=== PATIENT | female | born 1945 | race Caucasian/White ===

== ENCOUNTER 2017-10-24 11:22 | Inpatient (IN) | payer OTHER, MEDICAID ==
[~2017-10-24] VITALS: Ht 167.6 cm; Wt 76.2 kg
[~2017-10-24 11:22] MED LIST: ALEVE220 MG PO; BACTRIM DS TAB1 EACH PO; BENTYL 20 MG TA20 M1 PO; CARAFATE 1 GM TA1 GM PO; CIPRO500 MG PO; CRESTOR PO; CRESTOR10 MG PO; Crestor PO; DESYREL PO; DOXEPIN 25 MG C25 M1 GT; DOXYCYCLINE 10100 MG PO; DULOXETINE HCL60 MG PO; Glucophage PO; HYDROCODON-ACE1 EAC7 PO; HYDROCODONE-AP1 EAC6 PO; IBUPROFEN 600600 M1 PO; LYRICA 75 MG CA75 MG PO; METFORMIN HCL500 MG PO; METFORMIN PO; MILK OF MA400 MG/5 M PO; NORCO 5-325 TA1 EACH PO; PANTOPRAZOLE SO40 MG PO; PEPCID20 MG PO; SEE COMMENTS; TRAMADOL 50 MG50 MG PO; TRAVATAN Z5 ML OP; TRAZODONE HCL50 MG PO; TYLENOL325 MG PO; Trazodone Hcl PO; UNICOMPLEX M TA1 TA1 PO; VALIUM5 MG PO; ZOFRAN4 MG PO; [UNRECOGNIZED DRUG - MIXTURE] PO; [UNRECOGNIZED DRUG - REMARK]
[2017-10-24 11:27] VITALS: BP 150/57
[2017-10-24 11:55] LABS: ABSOLUTE LYMPHOCYTES 0.5 thou/uL (0.8-5.3); ABSOLUTE MONOCYTES 0.3 thou/uL (0.0-1.2); BASOPHILS 0.5 %; HEMATOCRIT 33.5 % (37.0-47.0); HEMOGLOBIN 10.7 gm/dL (12.0-15.0); LYMPHOCYTES 11.1 %; MCH 24.2 pg (26.0-34.0); MCHC 32.1 g/dL (28.0-37.0); MCV 75.4 fL (80.0-100.0); MONOCYTES 6.1 %; MPV 8.5 fl. (7.2-11.1); NUCLEATED RBCS 0 /100WBC; PLATELET COUNT* 160 thou/uL (150-400); POLYS 82.3 %; RBC 4.44 mil/uL (4.20-5.00); RDW-CV 17.5 % (10.5-14.5); WBC 4.9 thou/uL (4.0-11.0)
[2017-10-24 12:12] LABS: INR 1.2; PROTIME 11.3 Seconds (9.20-11.50)
[2017-10-24 12:14] LABS: URINE BILIRUBIN NEGATIVE (Negative); URINE BLOOD NEGATIVE (Negative); URINE CLARITY CLEAR; URINE COLOR YELLOW; URINE GLUCOSE-RANDOM NEGATIVE (Negative); URINE KETONES 1+ (Negative); URINE LEUKOCYTES-REFLEX NEGATIVE (Negative); URINE NITRITE-REFLEX NEGATIVE (Negative); URINE PROTEIN TRACE (Negative); URINE SPECIFIC GRAVITY 1.025 (1.005-1.030); URINE UROBILINOGEN 0.2 E.U./dl (0.2-1.0)
[2017-10-24 12:28] LABS: ANION GAP 10 mmol/L (7-16); BUN 15 mg/dL (7-18); CALCIUM 8.8 mg/dL (8.5-10.1); CHLORIDE 98 mmol/L (98-107); CO2 29 mmol/L (21-32); CREATININE 1.1 mg/dL (0.6-1.3); GLUCOSE 207 mg/dL (70-99); POTASSIUM 3.7 mmol/L (3.5-5.1); SODIUM 137 mmol/L (136-145)
[2017-10-24 12:33] LABS: ALBUMIN 3.5 g/dL (3.4-5.0); ALKALINE PHOSPHATASE 60 U/L (46-116); SGOT 28 U/L (15-37); SGPT 21 U/L (30-65); TOTAL BILIRUBIN 0.4 mg/dL (<0.1-1.0); TROPONIN-I LEVEL <0.06 ng/mL (<0.06)
[2017-10-24 12:36] LABS: INFLUENZA A ANTIGEN None Detected (None Detect); INFLUENZA B ANTIGEN None Detected (None Detect)
[2017-10-24] MEDS ORDERED: LYRICA 50 MG50 MG PO (13:53)
[2017-10-24] MEDS ORDERED: LORATIDINE 10 M10 M1 PO (13:55)
[2017-10-24] MEDS ORDERED: SENEXON-S TABL1 EACH PO (13:56)
[2017-10-24] MEDS ORDERED: TRAVATAN Z2.5 ML OPHTHALMIC (13:56)
[2017-10-24] MEDS ORDERED: VENTOLIN HFA 1818 GM INH (13:57)
[2017-10-24 17:14] VITALS: BP 111/54
[2017-10-24 20:00] VITALS: BP 137/49
[2017-10-25 00:33] VITALS: BP 131/58
[2017-10-25 04:00] VITALS: BP 123/53
[2017-10-25 07:55] VITALS: BP 144/62
[2017-10-25 11:30] VITALS: BP 141/65
--- NOTE | 2017-10-25 11:48 | EKG ---
[place] [address] ELECTROCARDIOGRAM REPORT Name: CONSTANTINOTOÑA L Room: [address] ADM IN M.R.#: [id number] Admission: 10/24/17 Attend Phys: Shiva Lopez, Discharge: Date of : 41 Report #: [id number] THIS REPORT FOR: //name// [facility] ED Test Date: 2017-10-24 Test Time: 12:01:50 Pat Name: TOÑA MEEKS Department: Room: [facility] Gender: F Auto Parts Handler: Lizbet BAKER : 1945 Requested By: Cr Meredith Order Number: [id number] MD: Александр Baer Measurements Intervals [place] Rate: 81 P: 53 W[place]: 165 QRS: -38 QRSD: 102 T: 71 QT: 362 QTc: 421 Interpretive Statements Sinus rhythm Left axis deviation Nonspecific T abnormalities, lateral leads Compared to ECG 07/14/2017 07:32:12 Left-axis deviation now present T-wave abnormality now present Electronically Signed On 10-25-2017 11:48:38 IT INFRASTRUCTURE SPECIALIST by Александр Baer [email or web address] <ELECTRONICALLY SIGNED> By: Александр Baer MD, FAC 10/25/17 1148 1201 1201 Александр Baer MD, [facility] /EPI
[2017-10-25 15:20] VITALS: BP 114/63
[2017-10-25 20:00] VITALS: BP 155/62
[2017-10-26] VITALS: BP 161/54
[2017-10-26 05:51] LABS: HEMATOCRIT 29.9 % (37.0-47.0); HEMOGLOBIN 9.8 gm/dL (12.0-15.0); MCH 24.2 pg (26.0-34.0); MCHC 32.7 g/dL (28.0-37.0); MCV 74.1 fL (80.0-100.0); MPV 9.1 fl. (7.2-11.1); RBC 4.04 mil/uL (4.20-5.00); RDW-CV 16.7 % (10.5-14.5); WBC 3.5 thou/uL (4.0-11.0)
[2017-10-26 06:04] LABS: CALCIUM 8.5 mg/dL (8.5-10.1); CREATININE 0.8 mg/dL (0.6-1.3); MAGNESIUM 1.5 mg/dL (1.8-2.4)
[2017-10-26 06:08] LABS: POTASSIUM 2.9 mmol/L (3.5-5.1)
[2017-10-26 06:39] LABS: ABSOLUTE LYMPHOCYTES 0.7 thou/uL (0.8-5.3); ABSOLUTE MONOCYTES 0.4 thou/uL (0.0-1.2); ABSOLUTE NEUTROPHILS 2.5 thou/uL (1.6-8.1); BASOPHILS 1.1 %; EOSINOPHILS 1.4 %; HEMATOCRIT 30.7 % (37.0-47.0); LYMPHOCYTES 18.8 %; MCH 24.5 pg (26.0-34.0); MCHC 32.4 g/dL (28.0-37.0); MCV 75.5 fL (80.0-100.0); MONOCYTES 10.8 %; MPV 8.8 fl. (7.2-11.1); NUCLEATED RBCS 0 /100WBC; PLATELET COUNT* 122 thou/uL (150-400); POLYS 67.9 %; RBC 4.06 mil/uL (4.20-5.00); RDW-CV 17.1 % (10.5-14.5); WBC 3.7 thou/uL (4.0-11.0)
[2017-10-26 06:51] LABS: CALCIUM 8.4 mg/dL (8.5-10.1); CREATININE 0.8 mg/dL (0.6-1.3)
[2017-10-26 08:00] VITALS: BP 138/71
[2017-10-26 20:30] VITALS: BP 143/58
[2017-10-27 00:05] VITALS: BP 144/56
[2017-10-27 03:52] VITALS: BP 154/63
[2017-10-27 04:00] VITALS: BP 144/56; BP 154/63
[2017-10-27 07:40] VITALS: BP 141/66
[2017-10-27 07:48] LABS: HEMATOCRIT 31.3 % (37.0-47.0); MCV 74.8 fL (80.0-100.0); MPV 8.5 fl. (7.2-11.1); RBC 4.18 mil/uL (4.20-5.00); RDW-CV 16.8 % (10.5-14.5); WBC 3.4 thou/uL (4.0-11.0)
[2017-10-27 08:08] LABS: ALBUMIN 3.2 g/dL (3.4-5.0); CALCIUM 8.1 mg/dL (8.5-10.1); CREATININE 0.8 mg/dL (0.6-1.3); MAGNESIUM 2.2 mg/dL (1.8-2.4); POTASSIUM 3.1 mmol/L (3.5-5.1); TOTAL BILIRUBIN 0.3 mg/dL (<0.1-1.0); TOTAL PROTEIN 6.7 g/dL (6.4-8.2)
[2017-10-27 15:16] VITALS: BP 153/63
[2017-10-27 19:50] VITALS: BP 177/59
[2017-10-28] VITALS: BP 128/65
[2017-10-28 07:35] VITALS: BP 156/72
[2017-10-28 08:28] LABS: HEMATOCRIT 31.2 % (37.0-47.0); HEMOGLOBIN 10.1 gm/dL (12.0-15.0); MCHC 32.2 g/dL (28.0-37.0); MCV 74.5 fL (80.0-100.0); MPV 8.1 fl. (7.2-11.1); RBC 4.2 mil/uL (4.20-5.00); WBC 4.9 thou/uL (4.0-11.0)
[2017-10-28 08:44] LABS: ALBUMIN 3.1 g/dL (3.4-5.0); CALCIUM 8.7 mg/dL (8.5-10.1); CREATININE 0.9 mg/dL (0.6-1.3); MAGNESIUM 1.8 mg/dL (1.8-2.4); PHOSPHORUS* 3.6 mg/dL (2.5-4.9); POTASSIUM 3.4 mmol/L (3.5-5.1)
[2017-10-28 11:18] VITALS: BP 156/72
[2017-10-28 11:54] VITALS: BP 122/50
--- NOTE | 2017-10-30 10:39 | EEG ---
[address] [address] EEG STUDY REPORT Name: TOÑA MEEKS Room: [address]#: [id number] Admission: 10/24/17 Attend Phys: Shiva Lopez, Discharge: 10/28/17 Date of : 41 Report #: [id number] THIS REPORT FOR: //name// CC: MICHEAL physician/PCP Shiva Lopez DATE OF SERVICE: 10/26/2017 FINDINGS: This patient is being evaluated for altered mental status. EEG was done by placing the electrodes by standard 10-20 system of electrode placement. Both referential and sequential montages were used for recording. Background activity in this patient's EEG is about 4-5 Hz and 30 microvolts. It is a symmetrical activity. The patient went to sleep that is associated with bilaterally symmetrical sleep spindle and vertex sharp waves. Photic stimulation is unremarkable. Throughout the record, no active epileptiform activity was noted. IMPRESSION: This is an abnormal EEG because it is poorly formed and disorganized. There is a nonspecific abnormality, which can occur with encephalopathy, dementia, effect of psychotropic medication, etc. Clinical correlation is recommended. Thank you very much for this referral. <ELECTRONICALLY SIGNED> By: Saul Woodson MD 10/30/17 1039 1649 1738Saul Woodson MD /nt
--- NOTE | 2017-10-30 10:39 | CON ---
[address] [address] CONSULTATION Name: CONSTANTINOTOÑA [place] Room: [address] IN .R.#: [id number] Admission: 10/24/17 Attend Phys: Shiva Lopez, Discharge: 10/28/17 Date of : 41 Report #: [id number] THIS REPORT FOR: //name// CC: MICHEAL physician/PCP Shiva Lopez DATE OF SERVICE: 10/26/2017 HISTORY OF PRESENT ILLNESS: This is a 72-year-old female patient who is not able to provide any reliable history. I talked to the nurses looking after this patient and subsequently I talked to the patient's daughter. This patient has underlying dementia. She was in assisted living till about 1 year ago, but then they put her in a fpc. She has significant memory problems. She usually does not remember month or the year. She repeats the same thing again and again. This had started some time ago spontaneously and up till about 1 year ago she was able to live in assisted living, but then they had to put her in the fpc after that. Whenever she develops bladder infections, she becomes even more confused and then partly recovers from that. She had a history of fall, but no history of seizure associated with it. REVIEW OF SYSTEMS: Indicate she has a history of breast cancer and stomach stapling, cataract improved. She has a history of bipolar. I carried out the 14-point review of systems and this was her relevant 14-point review of systems. PAST MEDICAL HISTORY: Positive for what appeared to be significant dementia. FAMILY HISTORY: Negative for congenital dementia. SOCIAL HISTORY: The patient lives in a fpc. PHYSICAL EXAMINATION: Indicate that she is alert, she is responsive. She has virtually no memory. Speech is limited, but I do not know what her baseline is. I tried to do the cranial nerve examination 2-12, but she was not able to cooperate very well. It looks like she can move all four extremities. She has no meningeal sign. She did not understand the instruction to do the cerebellar sign and she did not allow the fundus examination. She is a moderately built individual who does not have any dysmorphic features of eyes, ears and face. I think her vision and hearing looks adequate. Her blood pressure is 138/71, respirations 16, pulse is 90, temperature is 98.7. There is no edema, cyanosis or jaundice. Cardiac examination does not show any atrial fibrillation. Respiratory examination does not show much respiratory difficulty. LABORATORY DATA: Her last potassium is 3. Hemoglobin was 3.7. She did have a CT scan of the head, which showed atrophy. She did have a TSH and vitamin B12[place] [address] CONSULTATION Name: TOÑA MEEKS Room: [address]#: [id number] Admission: 10/24/17 Attend Phys: Shiva Lopez, Discharge: 10/28/17 Date of : 41 Report #: [id number] IMPRESSION: 1. Significant amount of dementia by history. 2. Viral illness causing encephalopathy. 3. Central nervous system infection is unlikely, but cannot be excluded. RECOMMENDATION: I initially talked to the patient, but I do not think the patient understands things. Then, I called the patient's daughter and discussed the situation with them. I discussed with them that they need to decide how aggressive they want to be. If they want to be aggressive, then she would need a spinal tap. If they want conservative care, then we can try conservative care and see how she does. I do not think she will be able to cooperate with MRI, but if they want to be aggressive, then we can try an MRI tomorrow. I did talk to them about LP and it is up to them if they want to do the LP to make sure there is no central nervous system. They will let us know if they want to be aggressive. We will get an EEG done and discuss this patient with you. Thank you very much for this referral and if you have any question, please feel free to contact me. <ELECTRONICALLY SIGNED> By: Saul Woodson MD 10/30/17 1039 1409 1448Saul Woodson MD /nt
== END 2017-10-28 11:50 | DRG 865 ==
LOC: M.ERS 11:22 → M.TBA-ER 12:49 → M.3W 12:49
PROVIDERS: Family Medicine; Internal Medicine; ADMIT Family Medicine
PROC: 4A00X4Z Measurement of Central Nervous Electrical Activity, External Approach (ICD-10-PCS; principal; 2017-10-24)
DX: B34.9 Viral infection, unspecified (principal); G93.40 Encephalopathy, unspecified; R65.10 Systemic inflammatory response syndrome (SIRS) of non-infectious origin without acute organ dysfunction; F03.90 Unspecified dementia, unspecified severity, without behavioral disturbance, psychotic disturbance, mood disturbance, and anxiety; Z85.3 Personal history of malignant neoplasm of breast; F31.9 Bipolar disorder, unspecified; K21.9 Gastro-esophageal reflux disease without esophagitis; Z98.42 Cataract extraction status, left eye; Z98.41 Cataract extraction status, right eye

== ENCOUNTER → 2018-07-16 | Outpatient (CLI) | payer OTHER, MEDICAID ==
[~2018-07-16] MED LIST changes: +LORATIDINE 10 M10 M1 PO; +LYRICA 50 MG50 MG PO; +SENEXON-S TABL1 EACH PO; +TRAVATAN Z2.5 ML OPHTHALMIC; +VENTOLIN HFA 1818 GM INH
[2018-07-16 09:58] LABS: CREATININE 1.2 mg/dL (0.6-1.3)
== END ==
LOC: M.LAB 09:21 → M.CT 11:00
PROVIDERS: Internal Medicine
DX: R91.1 Solitary pulmonary nodule (principal); C50.111 Malignant neoplasm of central portion of right female breast

== ENCOUNTER 2020-04-13 13:02 | Observation (INO) | payer MEDICARE, MEDICAID ==
[~2020-04-13] VITALS: Ht 167.6 cm; Wt 75.7 kg
[2020-04-13 08:00] VITALS: BP 145/65
[~2020-04-13 13:02] MED LIST changes: -HYDROCODONE-AP1 EAC6 PO; +NORCO 5-325 TA1 EAC2 PO
[2020-04-13 13:10] VITALS: BP 115/58
[2020-04-13] MEDS ORDERED: AUGMENTIN 500-1 EACH PO (13:20)
[2020-04-13] MEDS ORDERED: CLARITIN10 MG PO (13:21)
[2020-04-13] MEDS ORDERED: ANTI-ITCH28 GM TOP (13:22)
[2020-04-13] MEDS ORDERED: LEVEMIR100 UNIT/2 SUBQ (13:23)
[2020-04-13] MEDS ORDERED: MIRALAX119 GM PO (13:24)
[2020-04-13] MEDS ORDERED: XANAX 0.5 MG0.5 MG PO (13:24)
[2020-04-13 13:40] LABS: ABSOLUTE BASOPHILS 0.1 thou/uL (0.0-0.2); ABSOLUTE EOSINOPHILS 0.1 thou/uL (0.0-0.7); ABSOLUTE MONOCYTES 0.6 thou/uL (0.0-1.2); ABSOLUTE NEUTROPHILS 5.7 thou/uL (1.6-8.1); BASOPHILS 0.9 %; EOSINOPHILS 1.4 %; HEMATOCRIT 38.3 % (37.0-47.0); HEMOGLOBIN 13.1 gm/dL (12.0-15.0); LYMPHOCYTES 23.7 %; MCH 30.9 pg (26.0-34.0); MCHC 34.3 g/dL (28.0-37.0); MCV 89.9 fL (80.0-100.0); MONOCYTES 6.5 %; MPV 8.2 fl. (7.2-11.1); NUCLEATED RBCS 0 /100WBC; PLATELET COUNT* 172 thou/uL (150-400); POLYS 67.5 %; RBC 4.26 mil/uL (4.20-5.00); RDW-CV 14.6 % (10.5-14.5); WBC 8.5 thou/uL (4.0-11.0)
[2020-04-13 13:49] LABS: CALCIUM 8.3 mg/dL (8.5-10.1); CREATININE 1.5 mg/dL (0.6-1.3)
[2020-04-13 13:51] LABS: APTT 24.6 Seconds (25.0-31.3); INR 1.1; PROTIME 11.5 Seconds (9.20-11.50)
[2020-04-13 14:00] LABS: ALBUMIN 3.3 g/dL (3.4-5.0); MAGNESIUM 2.1 mg/dL (1.8-2.4); TOTAL BILIRUBIN 0.3 mg/dL (<0.1-1.0)
--- NOTE | 2020-04-13 15:18 | EKG ---
[place] [address] ELECTROCARDIOGRAM REPORT Name: TOÑA MEEKS Room: [address]#: [id number] Admission: 04/13/20 Attend Phys: Jc Chen Discharge: Date of : 41 Date of Service: 04/13/20 1306 Report #: [id number] THIS REPORT FOR: //name// [facility] ED Test Date: 2020-04-13 Test Time: 13:06:45 Pat Name: TOÑA MEEKS Department: Room: [facility] Gender: F Loss Prevention Investigator: : 1945 Requested By: Joselo Romero Order Number: [id number] MD: Miguelangel Riojas Measurements Intervals [place] Rate: 70 P: 102 [place]: 57 QRS: -47 QRSD: 104 T: 87 QT: 403 QTc: 435 Interpretive Statements Sinus rhythm Short MS interval Left anterior fascicular block Abnormal R-wave progression, late transition LVH with secondary repolarization abnormality Compared to ECG 10/24/2017 12:01:50 Short MS interval now present Left anterior fascicular block now present Left ventricular hypertrophy now present Early repolarization now present Electronically Signed On 04-13-2020 15:18:12 CDT by Miguelangel Riojas [email or web address] <ELECTRONICALLY SIGNED> By: Miguelangel Riojas MD, [facility] 04/13/20 1518 1306 1306 Miguelangel Riojas MD, [facility] /EPI
[2020-04-13 16:37] VITALS: BP 111/52
[2020-04-13 17:00] VITALS: BP 145/65
[2020-04-13 20:00] VITALS: BP 138/60
[2020-04-14 01:00] VITALS: BP 138/56
[2020-04-14 04:00] VITALS: BP 127/43
[2020-04-14 08:00] VITALS: BP 124/46
[2020-04-14 12:32] VITALS: BP 118/47; BP 130/71
[2020-04-14 16:41] VITALS: BP 112/45
[2020-04-14 20:00] VITALS: BP 153/57
[2020-04-15] VITALS: BP 117/60
[2020-04-15 04:00] VITALS: BP 147/63
[2020-04-15 08:00] VITALS: BP 120/45
[2020-04-15 16:00] VITALS: BP 111/45
[2020-04-15 20:00] VITALS: BP 139/51
[2020-04-16] VITALS: BP 114/40
[2020-04-16 04:00] VITALS: BP 111/59
[2020-04-16 04:05] LABS: GLYCOHEMOGLOBIN (HGB A1C) 7.1 % (4.8-5.6)
[2020-04-16 08:00] VITALS: BP 140/62
[2020-04-16] MEDS ORDERED: ASA81BEC PO (09:29)
[2020-04-16 10:24] LABS: CHOLESTEROL 118 mg/dL (<200); HDL CHOLESTEROL 39 mg/dL (>40); LDL CHOLESTEROL 59 mg/dL (<100); TRIGLYCERIDE 100 mg/dL (<150); VLDL 20 mg/dL (<40)
[2020-04-16 10:25] LABS: SERUM ASSESSMENT Clear
[2020-04-16 11:24] VITALS: BP 140/62
[2020-04-16 12:00] VITALS: BP 136/62
--- NOTE | 2020-04-16 12:24 | CON ---
[address] [address] CONSULTATION Name: TOÑA MEEKS Room: [address] Elroy Trujillo#: [id number] Admission: 04/13/20 Attend Phys: Marilee Acosta Discharge: Date of : 41 Report #: [id number] THIS REPORT FOR: //name// cc: MICHEAL Peres family physician/PCP MICHEAL Peres family physician/PCP ~ THIS REPORT FOR: //name// CC: MICHEAL physician/PCP Jc Chen DATE OF SERVICE: 04/14/2020 CARDIOLOGY CONSULTATION HISTORY OF PRESENT ILLNESS: The patient is a pleasant 74-year-old female with dementia. She presented yesterday with chest pain, which apparently remitted after nitrates and aspirin. She does not recall the episode and thus it is difficult to ascertain in characteristics regarding it. She notes that the pain is not present today. On reviewing the admission notes, there was the suggestion that it was nitrate responsive. There is no history of antecedent myocardial infarction. She does have a chronic chest discomfort, which was related to about to breast resections. PAST MEDICAL HISTORY: Remarkable for significant dementia, prior mastectomies, gastroesophageal reflux disease. SOCIAL HISTORY: The patient is not a smoker. REVIEW OF SYSTEMS: Remarkable for the aforementioned breast reduction surgery and then dementia. PHYSICAL EXAMINATION: GENERAL: Reveals a pleasant elderly female, in no acute distress. VITAL SIGNS: Blood pressure is 124/50, pulse rate is 55, and respirations are 18 per minute. NECK: Jugular venous pressure is normal. CHEST: Clear. CARDIAC: Reveals normal first and second heart sounds with a soft systolic murmur. ABDOMEN: Mildly obese. EXTREMITIES: Without significant edema. LABORATORY DATA: Reveals hemoglobin of 13.1; white blood cell count of [address] [place] [address] CONSULTATION Name: TOÑA MEEKS Room: [address] Elroy Trujillo#: [id number] Admission: 04/13/20 Attend Phys: Marilee Acosta Discharge: Date of : 41 Report #: [id number] with 172,000 platelets. Sodium 141, potassium 4.8, BUN 19, creatinine 1.5. Troponin-I is less than 0.06. NT-BNP is 358. Chest x-ray reveals a normal heart size without evidence for congestive heart failure. IMPRESSION: 1. Episode of chest discomfort yesterday of uncertain etiology; there is a question of nitrate responsiveness. 2. EKG and enzymes revealed no evidence for acute myocardial ischemia or injury. 3. History of breast cancer. 4. Diabetes. 5. Fibromyalgia. RECOMMENDATIONS: One could consider outpatient noninvasive testing, but I would not recommend catheterization or invasive evaluation on the basis of confluent data at this point. <ELECTRONICALLY SIGNED> By: Miguelangel Riojas MD, [facility] 04/16/20 1224 1039 [id number] Riojas MD, FACC /nt
[2020-04-16 16:00] VITALS: BP 126/45
--- NOTE | 2020-04-16 17:02 | CARDNUC ---
[place] [address] CARDIAC NUCLEAR IMAGING REPORT Name: TOÑA MEEKS Room: [address]R.#: [id number] Admission: 04/13/20 Attend Phys: Jc Chen Discharge: Date of : 41 Date of Service: 04/16/20 1701 Report #: [id number] THIS REPORT FOR: cc: FAM - No family physician/PCP FAM - No family physician/PCP Jayson Pineda MD [facility] ~ ADDENDUM APPROVED REPORT Imaging Protocol: Stress Tc-99m/Rest Tc-99m 2 days Study performed: 04/15/2020 09:39:00 Indication: Chest pain and palpitations Patient Location: In-Patient Stress Tech: [place] Stress Nurse: Rosemarie Montoya RN NM Tech:ALEXIS Rodrigues Ht: 5 ft 5 in Wt: 167 lbs BSA: 1.83 m2 HR: 60 bpm BP: 117/67 mmHg BMI: 27.78 Medical History Medical History: Type 2 diabetes mellitus Medications: Aspirin, nitroglycerin, metformin, insulin Allergies: No known drug allergies Cardiac Risk Factors: Age greater than 55, type 2 diabetes mellitus Previous Cardiac Procedures: None Pretest Chest Pain Characteristics: chest pain, dyspnea and palpitations Meds Held (24 hrs): Nitroglycerin Resting Data Rest SPECT myocardial perfusion imaging was performed in supine position 30 minutes following the intravenous injection of 11.4 mCi of Tc-99m Sestamibi. Time of rest injection: 13:00 Date: 04/16/2020 The images were gated to evaluate regional wall motion and calculate left ventricular ejection fraction. Administration Route: IV Administration Site: Right Arm Pharmacologic Stress Pharmacologic stress test was performed by injecting Regadenoson 0.4 mg IV push over 10-15 seconds immediately [place] [address] CARDIAC NUCLEAR IMAGING REPORT Name: TOÑA MEEKS Room: [address]#: [id number] Admission: 04/13/20 Attend Phys: Jc Chen Discharge: Date of : 41 Date of Service: 04/16/20 1701 Report #: [id number] injection of 32.7 mCi of Tc-99m Sestamibi. Time of stress injection: 14:35 Date: 04/16/2020 Administration Route: IV Administration Site: Right Arm Heart Rate at time of stress injection: 81 bpm. Gated Stress SPECT was performed 40 minutes after stress injection. The images were gated to evaluate regional wall motion and calculate left ventricular ejection fraction. Stress Test Details Stress Test: Pharmacologic stress testing performed using 0.4 mg of regadenoson per 5 mL given IV over 10 seconds. Reason for pharmacologic stress test: physical limitation. HR Max Heart Rate (APMHR): 144 bpm Resting HR: 60 bpm Target HR (85% APMHR): 122 bpm Max HR Achieved: 81 bpm % of APMHR: 56 Recovery HR: 68 bpm BP Resting BP: 117/67 mmHg Max BP: 122/52 mmHg Recovery BP: 138/58 mmHg ECG Resting ECG: Sinus Rhythm Stress ECG: Sinus Rhythm ST Change: None Arrhythmia: None Recovery ECG: Sinus Rhythm Recovery ST Change: None Recovery Arrhythmia: None Clinical The patient tolerated Lexiscan infusion without significant cardiac symptoms. Stress ECG Conclusion Baseline twelve-lead EKG shows sinus rhythm without significant ST segment or T wave abnormality. EKGs obtained during and post Lexiscan infusion show sinus rhythm with no significant ST segment or T wave changes when compared to baseline. Study Quality Study: [place] [address] CARDIAC NUCLEAR IMAGING REPORT Name: TOÑA MEEKS Room: [address]#: [id number] Admission: 04/13/20 Attend Phys: Jc Chen Discharge: Date of : 41 Date of Service: 04/16/20 1701 Report #: [id number] Artifact: No artifact Study Data At rest, the left ventricular ejection fraction was 59%.. Post stress, the left ventricular ejection was 78%.. TID = 0.77. Perfusion Perfusion images show uniform uptake of radioisotope throughout the myocardium at rest and post Lexiscan stress. Wall Motion Normal left ventricular wall motion. Nuclear Conclusion ECG Findings: negative for ischemia Clinical Findings: negative for ischemia Nuclear Findings: negative for ischemia Exercise Capacity: not assessed Left Ventricular Function: normal Risk Study: low Perfusion images show no defect to suggest infarct or ischemia. Left ventricular systolic function is normal on gated studies. This is a low risk study. <Conclusion> Baseline twelve-lead EKG shows sinus rhythm without significant ST segment or T wave abnormality. EKGs obtained during and post Lexiscan infusion show sinus rhythm with no significant ST segment or T wave changes when compared to baseline. <ELECTRONICALLY SIGNED> By: Jayson Pineda MD, FACC 04/16/201700 00 00 Jayson Pineda MD, FACC /INF
== END 2020-04-16 18:30 ==
LOC: M.ERS 13:02 → M.2W 14:40 → M.TBA-ER 14:40 → M.2W 16:33
PROVIDERS: Emergency Medicine Emergency Medical Services; Internal Medicine; ADMIT Internal Medicine; ATTEND Internal Medicine
DX: R07.89 Other chest pain (principal); M54.5 Low back pain; K21.9 Gastro-esophageal reflux disease without esophagitis; F03.90 Unspecified dementia, unspecified severity, without behavioral disturbance, psychotic disturbance, mood disturbance, and anxiety; E11.9 Type 2 diabetes mellitus without complications; F31.9 Bipolar disorder, unspecified; N17.9 Acute kidney failure, unspecified; R06.02 Shortness of breath

== ENCOUNTER 2021-01-14 21:22 | Emergency (ER) | payer MEDICARE, MEDICAID ==
[~2021-01-14] VITALS: Ht 160 cm; Wt 81.2 kg
[~2021-01-14 21:22] MED LIST changes: +ANTI-ITCH28 GM TOP; +ASA81BEC PO; +AUGMENTIN 500-1 EACH PO; +CLARITIN10 MG PO; +LEVEMIR100 UNIT/2 SUBQ; +MIRALAX119 GM PO; +XANAX 0.5 MG0.5 MG PO
[2021-01-14] MEDS ORDERED: NOVOLOG100 UNIT/M SUBQ (21:39)
[2021-01-14] MEDS ORDERED: GLUCAGON EMERGEN1 MG SUBQ (21:40)
[2021-01-14 21:49] LABS: ABSOLUTE BASOPHILS 0.1 thou/uL (0.0-0.2); ABSOLUTE EOSINOPHILS 0.3 thou/uL (0.0-0.7); ABSOLUTE LYMPHOCYTES 3.6 thou/uL (0.8-5.3); ABSOLUTE MONOCYTES 0.6 thou/uL (0.0-1.2); ABSOLUTE NEUTROPHILS 4.3 thou/uL (1.6-8.1); EOSINOPHILS 3.1 %; HEMATOCRIT 39.9 % (37.0-47.0); MCH 29.4 pg (26.0-34.0); MCHC 32.5 g/dL (28.0-37.0); MCV 90.4 fL (80.0-100.0); MONOCYTES 6.5 %; MPV 8.4 fl. (7.2-11.1); NUCLEATED RBCS 0 /100WBC; PLATELET COUNT* 187 thou/uL (150-400); POLYS 48.4 %; RBC 4.41 mil/uL (4.20-5.00); RDW-CV 14.1 % (10.5-14.5); WBC 8.9 thou/uL (4.0-11.0)
[2021-01-14 21:58] LABS: CALCIUM 8.9 mg/dL (8.5-10.1); CREATININE 1.2 mg/dL (0.6-1.3); POTASSIUM 4.5 mmol/L (3.5-5.1)
[2021-01-14 22:00] LABS: APTT 20.3 Seconds (25.0-31.3); PROTIME 10.9 Seconds (9.20-11.50)
[2021-01-14 22:03] LABS: ALBUMIN 3.6 g/dL (3.4-5.0); MAGNESIUM 2.2 mg/dL (1.8-2.4); TOTAL BILIRUBIN 0.3 mg/dL (<0.1-1.0); TOTAL PROTEIN 7.6 g/dL (6.4-8.2)
[2021-01-14 22:08] LABS: BE 0.2 mmol/L (-2 to +3); PCO2 39.5 mmHg (35.0-45.0); pH 7.413 (7.340-7.450)
[2021-01-14 22:15] LABS: URINE BILIRUBIN NEGATIVE (Negative); URINE BLOOD TRACE (Negative); URINE CLARITY CLEAR; URINE COLOR YELLOW; URINE GLUCOSE-RANDOM 1+ (Negative); URINE KETONES NEGATIVE (Negative); URINE LEUKOCYTES-REFLEX NEGATIVE (Negative); URINE PROTEIN NEGATIVE (Negative); URINE UROBILINOGEN 0.2 E.U./dl (0.2-1.0)
[2021-01-14 22:16] LABS: URINE NITRITE-REFLEX POSITIVE (Negative)
[2021-01-14 22:40] LABS: CASTS None Seen /LPF (None Seen); SQUAMOUS >10 Many /LPF (0-3)
[2021-01-14 22:41] LABS: BACTERIA-REFLEX >30 Many /HPF (None Seen); CRYSTALS None Seen /LPF (None Seen); URINE RBC 0-2 Rare /HPF (0-2); URINE WBC-REFLEX 0-5 Rare /HPF (0-5)
[2021-01-14] MEDS ORDERED: MACROBID 100 M100 M1 PO (23:41)
[2021-01-14 23:53] VITALS: BP 140/65
--- NOTE | 2021-01-15 15:14 | EKG ---
[place] [address] ELECTROCARDIOGRAM REPORT Name: TOÑA MEEKS Room: [facility]#: [id number] Admission: 01/14/21 Attend Phys: Discharge: 01/14/21 Date of : 41 Date of Service: 01/14/212125 Report #: [id number] THIS REPORT FOR: //name// [facility] ED Test Date: 2021-01-14 Test Time: 21:26:54 Pat Name: TOÑA MEEKS Department: Room: Gender: F Application Services Manager: [place] : 1945 Requested By: Ritika Tripp Order Number: [id number] MD: Nasim Crane Measurements Intervals [place] Rate: 50 P: 20 [place]: 199 QRS: -30 QRSD: 114 T: 29 QT: 457 QTc: 417 Interpretive Statements Sinus bradycardia Abnormal R-wave progression, late transition Left ventricular hypertrophy Compared to ECG 04/13/2020 13:06:45 rate has slowed Electronically Signed On 01-15-2021 15:14:01 CDT by Nasim Crane [email or web address] <ELECTRONICALLY SIGNED> By: Nasim Crane MD, FACC 01/15/21 1514 25 25 Nasim Crane MD, [facility] /EPI
== END 2021-01-14 23:53 | disposition home or self-care (01) ==
LOC: M.ERS 21:22
PROVIDERS: Personal Emergency Response Attendant
DX: N39.0 Urinary tract infection, site not specified (principal); K21.9 Gastro-esophageal reflux disease without esophagitis; E11.9 Type 2 diabetes mellitus without complications; Z79.4 Long term (current) use of insulin; Z85.3 Personal history of malignant neoplasm of breast; Z90.11 Acquired absence of right breast and nipple; Z87.440 Personal history of urinary (tract) infections

== ENCOUNTER 2021-10-24 07:58 | Emergency (ER) | payer MEDICARE, MEDICAID ==
[~2021-10-24] VITALS: Ht 157.5 cm; Wt 90.7 kg
[~2021-10-24 07:58] MED LIST changes: +GLUCAGON EMERGEN1 MG SUBQ; +MACROBID 100 M100 M1 PO; +NOVOLOG100 UNIT/M SUBQ
[2021-10-24] MEDS ORDERED: LEXAPRO 10 MG T10 M2 PO (08:19)
[2021-10-24] MEDS ORDERED: PREPARATION H1 EAC2 (08:19)
[2021-10-24] MEDS ORDERED: ATIVAN0.5 M1 PO (08:20)
[2021-10-24] MEDS ORDERED: NOVOLOG100 UNIT/2 SUBQ (08:20)
[2021-10-24] MEDS ORDERED: SEROQUEL 50 MG50 M1 PO (08:20)
[2021-10-24 09:07] LABS: ABSOLUTE EOSINOPHILS 0.2 thou/uL (0.0-0.7); ABSOLUTE LYMPHOCYTES 2.3 thou/uL (0.8-5.3); ABSOLUTE MONOCYTES 0.4 thou/uL (0.0-1.2); ABSOLUTE NEUTROPHILS 4.4 thou/uL (1.6-8.1); BASOPHILS 0.6 %; EOSINOPHILS 3.2 %; HEMATOCRIT 39.1 % (37.0-47.0); LYMPHOCYTES 31.2 %; MCH 29.8 pg (26.0-34.0); MCHC 33.3 g/dL (28.0-37.0); MCV 89.5 fL (80.0-100.0); MONOCYTES 5.9 %; MPV 8.2 fl. (7.2-11.1); NUCLEATED RBCS 0 /100WBC; PLATELET COUNT* 187 thou/uL (150-400); POLYS 59.1 %; RBC 4.37 mil/uL (4.20-5.00); RDW-CV 13.7 % (10.5-14.5); WBC 7.4 thou/uL (4.0-11.0)
--- NOTE | 2021-10-24 09:18 | EKG ---
[place] [address] ELECTROCARDIOGRAM REPORT Name: TOÑA MEEKS Room: [facility]#: [id number] Admission: 10/24/21 Attend Phys: Discharge: Date of : 41 Date of Service: 10/24/[address] Report #: [id number] THIS REPORT FOR: //name// [facility] ED Test Date: 2021-10-24 Test Time: 08:03:37 Pat Name: TOÑA MEEKS Department: Room: Gender: Chief Sales Officer: : 1945 Requested By: Tenzin Peña Order Number: [id number] MD: Jayson Pineda Measurements Intervals [place] Rate: 55 P: -67 [place]: 158 QRS: -39 QRSD: 107 T: 77 QT: 486 QTc: 465 Interpretive Statements Sinus or ectopic atrial rhythm Atrial premature complex Left axis deviation Borderline T wave abnormalities Compared to ECG 01/14/2021 21:26:54 Ectopic atrial rhythm now present Atrial premature complex(es) now present Left-axis deviation now present T-wave abnormality now present Sinus bradycardia no longer present Left ventricular hypertrophy no longer present Electronically Signed On 10-24-2021 9:18:35 SCRAP PILER by Jayson Pineda [email or web address] <ELECTRONICALLY SIGNED> By: Jayson Pineda MD, [facility] 10/24/21917 2 2 Jayson Pineda MD, [facility] /EPI
[2021-10-24 09:19] LABS: CALCIUM 8.5 mg/dL (8.5-10.1); CREATININE 1.1 mg/dL (0.6-1.3); POTASSIUM 3.9 mmol/L (3.5-5.1)
[2021-10-24 09:20] LABS: APTT 25.2 Seconds (25.0-31.3); INR 1.1; PROTIME 11.2 Seconds (9.20-11.50)
[2021-10-24 09:33] LABS: ALBUMIN 3.1 g/dL (3.4-5.0); TOTAL BILIRUBIN 0.5 mg/dL (<0.1-1.0); TOTAL PROTEIN 6.9 g/dL (6.4-8.2)
[2021-10-24 11:32] VITALS: BP 127/64
== END 2021-10-24 11:35 | disposition home or self-care (01) ==
LOC: M.ERS 07:58
PROVIDERS: Emergency Medicine
DX: R07.89 Other chest pain (principal); F02.80 Dementia in other diseases classified elsewhere, unspecified severity, without behavioral disturbance, psychotic disturbance, mood disturbance, and anxiety; F31.9 Bipolar disorder, unspecified; E11.9 Type 2 diabetes mellitus without complications; K21.9 Gastro-esophageal reflux disease without esophagitis; Z85.3 Personal history of malignant neoplasm of breast; Z90.11 Acquired absence of right breast and nipple; Z90.12 Acquired absence of left breast and nipple; Z79.82 Long term (current) use of aspirin; Z79.4 Long term (current) use of insulin; Z79.899 Other long term (current) drug therapy